=== PATIENT | female | born 1945 | race Caucasian/White ===

== ENCOUNTER 2018-02-04 00:18 | Day surgery (SDC) | payer MEDICARE, OTHER ==
[~2018-02-04] VITALS: Ht 160 cm; Wt 74.4 kg
[~2018-02-04 00:18] MED LIST: CEFU250 PO; DAR100 PO; GUAI200T22 PO; HYDR-2966 PO; LEV125 PO; LEV500 PO; LEV75 PO; LEVO75TA73 PO; LOR7.5/325 PO; MOMR; RAN150 PO; RIV10 PO
[2018-02-04 07:18] VITALS: BP 141/84
[2018-02-04] MEDS ORDERED: LIDOCAINE/SOD BICARB 8.4% SYR ID ONE (07:20)
[2018-02-04] MEDS ORDERED: NORMOSOL R SOLN(*) 1000 ML BAG 1,000 ML IV PRN (07:20)
--- NOTE | 2018-02-04 07:24 | Short(Outpt) Discharge Summary ---
Discharge Summary Reason for Hosp/Final Diag: (1) Encounter for screening colonoscopy Hospital Course & Plan: diverticulosis hepatic flexure and sigmoid colon Departure Discharge to: Home Discharge Instructions Home Meds Reported Medications Levothyroxine Sodium (LEVOTHYROXINE SODIUM) 75 Mcg Tablet, 37.5 MCG PO QDAY, TAB 01/26/18 Hydrochlorothiazide (HYDROCHLOROTHIAZIDE) 25 Mg Tablet, 1 TAB PO QDAY, TAB 01/26/18 Guaifenesin (Guaifenesin) 200 Mg Tablet, 1 - 2 TAB PO PRN 08/24/12 Ranitidine Hcl (Zantac) 150 Mg Tab, 150 MG PO HS 08/24/12 Mometasone Furoate (Nasonex) 17 Gm Coward, 0 GM NA NIGHT SPRAY 2 SPRAYS IN EACH NOSTRIL 01/13/07 Diet: High Fiber Activity: As Tolerated CHARLES JARQUIN MD Feb 04, 2018 07:24
--- NOTE | 2018-02-04 07:24 | Post Operative Progress Note ---
Post Operative Progress Note Date: Feb 04, 2018 Time: 08:25 Surgeon: arnaldo Anesthesia: ayon Pre-Op Diagnosis: screening colonoscopy Post-Op Diagnosis: diverticulosis Procedure(s): colonoscopy CHARLES JARQUIN MD Feb 04, 2018 07:24
[2018-02-04] MEDS ORDERED: PROPOFOL EMUL(*) 10MG/ML 20 ML 20 ML ONE (07:25)
[2018-02-04 08:25] VITALS: BP 123/78
[2018-02-04 09:00] VITALS: BP 121/106
--- NOTE | 2018-02-04 16:03 | OPERATIVE REPORT 1 ---
EVENT DATE: February 04, 2018 SURGEON: Hilario Bolivar MD ANESTHESIOLOGIST: Saeid Harrington MD ANESTHESIA: Sedation. PREOPERATIVE DIAGNOSIS Screening colonoscopy. POSTOPERATIVE DIAGNOSIS Diverticulosis. PROCEDURE PERFORMED Colonoscopy. DESCRIPTION OF PROCEDURE Patient was placed in the left lateral decubitus position and given intravenous sedation. Rectal exam was unremarkable. Flexible colonoscope was inserted and advanced to the cecum. She had an excellent bowel prep. The ileocecal valve, base of the cecum, and appendiceal orifice identified. Scope was slowly withdrawn. No mucosal abnormalities were noted in the cecum or right colon. At the hepatic flexure, she had a few diverticula. Transverse colon was normal. She had diverticula in the descending and sigmoid colon. No evidence of diverticulitis. Rectum was normal. Scope was retroflexed. That appeared to be normal. She will need another colonoscopy in 10 years. SAMIRA
== END 2018-02-04 09:27 | disposition home or self-care (01) ==
LOC: OR 00:18
PROVIDERS: ATTEND Surgery
DX: Z12.11 Encounter for screening for malignant neoplasm of colon (principal); K57.30 Diverticulosis of large intestine without perforation or abscess without bleeding
CPT/HCPCS: 00812; G0121; J2704

== ENCOUNTER → 2018-09-28 | Outpatient (CLI) | payer MEDICARE, OTHER ==
[~2018-09-28] MED LIST changes: +CALC500T6 PO; +CHOL400C10 PO; +KRIL500C2 PO; +MULT1CAP59 PO; +VITA200C44 PO
== END ==
LOC: AUD 08:30
PROVIDERS: ATTEND Otolaryngology
DX: H90.41 Sensorineural hearing loss, unilateral, right ear, with unrestricted hearing on the contralateral side (principal)
CPT/HCPCS: 92557; 92570

== ENCOUNTER → 2018-10-27 | Outpatient (CLI) | payer MEDICARE, OTHER ==
[~2018-10-27] MED LIST changes: +IPRA15SP7 NS
--- NOTE | 2018-10-28 17:11 | RADIOLOGY IMAGING REPORT ---
FACILITY: [facility] PATIENT NAME: IVA ESTRELLA : [id number] MR: [id number]: [id number] EXAM DATE: [id number] ORDERING PHYSICIAN: PALOMO VILLALOBOS TECHNOLOGIST: Gloria Michael PROCEDURE:BILATERAL DIGITAL SCREENING MAMMOGRAM WITH CAD ASSISTED INTERPRETATION & 3D TOMOSYNTHESIS COMPARISON:Prior mammograms 10/02/17, 10/01/16, 09/28/15, 09/19/14, 09/13/13, 09/13/12. INDICATIONS:SCREENING FINDINGS: Scattered fibroglandular densities are seen throughout the breasts. The parenchymal pattern has remained stable allowing for difference in mammographic technique & patient positioning. DIAGNOSTIC CATEGORY 1--NEGATIVE. RECOMMENDATIONS: ROUTINE MAMMOGRAM AND CLINICAL EVALUATION. IMPRESSION: BIRADS 1: Negative. No significant abnormality is seen. Dictated by: Tracy Smith M.D. on 10/27/2018 at 8:30 Transcribed by: BULL on 10/27/2018 at 8:43 Approved by: Tracy Smith M.D. on 10/28/2018 at 17:10 [facility]
== END ==
LOC: MAMO 01:12
PROVIDERS: ATTEND Nurse Practitioner Family
DX: Z12.31 Encounter for screening mammogram for malignant neoplasm of breast (principal)
CPT/HCPCS: 77063; 77067